=== PATIENT | male | born 1975 | race African-American/Black ===

== ENCOUNTER 2019-05-27 09:43 | Emergency (ER) | payer BC ==
[2019-05-27 09:52] VITALS: BP 141/85
--- NOTE | 2019-05-27 10:04 | UC ---
Cardiac HPI - HPI Summary HPI Summary: Mr. Shane is had several episodes of brief pressure-like discomfort in his anterior chest this morning. There were no exacerbating or relieving factors that he can identify. He did have some shortness of breath with it. He has never had symptoms like this before. - History of Current Complaint Chief Complaint: UCChestPain Stated Complaint: CHEST DISCOMFORT Time Seen by Provider: 05/27/19 09:47 Hx Obtained From: Patient Onset/Duration: Sudden Onset, Lasting Minutes Initial Severity: Mild Current Severity: Mild Pain Intensity: 3 Chest Pain Location: Mid Sternal Character: Pressure/Squeezing Aggravating Factor(s): Nothing Alleviating Factor(s): Nothing Associated Signs & Symptoms: Positive: SOB - Risk Factors Pulmonary Embolism Risk Factors: Negative Cardiac Risk Factors: Hypertension, Diabetes, Elevated Lipids, Family History - Allergy/Home Medications Allergies/Adverse Reactions: Allergies Allergy/AdvReac Type Severity Reaction Status Date / Time No Known Allergies Allergy Verified 05/27/19 09:47 Home Medications: Home Medications Atorvastatin* [Lipitor 40 MG*] 1 tab PO DAILY 05/27/19 [History Confirmed ] PMH/Surg Hx/FS Hx/Imm Hx Endocrine History: Diabetes, Dyslipidemia Cardiovascular History: Hypertension - Surgical History Surgical History: None - Family History Known Family History: Positive: Cardiac Disease, Hypertension, Diabetes - Social History Alcohol Use: Occasionally Substance Use Type: None Smoking Status (MU): Never Smoked Tobacco Review of Systems All Other Systems Reviewed And Are Negative: Yes Constitutional: Positive: Negative Skin: Positive: Negative Respiratory: Positive: Shortness Of Breath Cardiovascular: Positive: Chest Pain Gastrointestinal: Positive: Negative Physical Exam - Summary Physical Exam Summary: Is nontoxic in appearance with stable vital signs. He is class II obese Triage Information Reviewed: Yes Appearance: Well-Appearing, No Pain Distress, Obese Vital Signs: Initial Vital Signs Temp 98.3 F 05/27/19 09:44 Pulse 73 05/27/19 09:44 Resp 22 05/27/19 09:44 BP 141/85 05/27/19 09:44 Pulse Ox 98 05/27/19 09:44 Vital Signs Reviewed: Yes ENT Exam: Normal Neck: Positive: Supple Respiratory Exam: Normal Cardiovascular Exam: Normal Abdominal Exam: Normal Skin Exam: Normal Diagnostics - EKG Cardiac Rate: NL Cardiac Rhythm: Sinus: Normal Ectopy: None ST Segment: Normal EKG Comparison: No Significant Change - From 02/05/09 - Assessment/Plan Course Of Treatment: Situations beyond the capabilities of the urgent care center. He needs evaluation in the emergency department for more thorough workup. I recommended EMS transport but he is completely asymptomatic at this point and agrees to drive over. I warned him that if his chest pain returns or is any other symptoms she should mold puller and call 911. - Clinical Impression Provider Diagnosis: Chest pain Discharge ED - Sign-Out/Discharge Documenting (check all that apply): Patient Departure All imaging exams completed and their final reports reviewed: No Studies - Discharge Plan Condition: Stable Disposition: HOME-RECOMMEND TO ED Referrals: Zaira Chapman MD [Primary Care Provider] - - Billing Disposition and Condition Condition: STABLE Disposition: Home-Recommend to ED
== END 2019-05-27 10:15 | disposition home health service (06) ==
LOC: UCEAST 09:43
DX: R07.89 Other chest pain (principal); E11.9 Type 2 diabetes mellitus without complications; I10 Essential (primary) hypertension; E78.5 Hyperlipidemia, unspecified; R06.02 Shortness of breath; Z79.899 Other long term (current) drug therapy
CPT/HCPCS: 93005; 99212; G0463

== ENCOUNTER 2019-05-27 10:37 | Emergency (ER) | payer BC ==
[2019-05-27] MEDS ORDERED: Ketorolac INJ* 30 MG/ML 1 ML VIAL IV PUSH ONE (11:00)
[2019-05-27 11:05] LABS: ABS Basophils 0.1 10^3/ul (0-0.2); ABS Eosinophils 0.1 10^3/ul (0-0.6); ABS Lymphocytes 2.2 10^3/ul (1.0-4.8); ABS Monocytes 0.7 10^3/ul (0-0.8); ABS Neutrophils 7.6 10^3/ul (1.5-7.7); Eosinophil % 1.1 %; Hematocrit 47 % (42-52); Hemoglobin 15.6 g/dL (14.0-18.0); Lymphocyte % 20.6 %; Mean Corpuscular HGB Conc 33 g/dL (31-36); Mean Corpuscular Hemoglobin 27 pg (27-31); Mean Corpuscular Volume 81 fL (80-94); Mean Platelet Volume 8.3 fL (7.4-10.4); Nucleated Red Blood Cells % 0.1; Platelet Count 207 10^3/uL (150-450); Red Blood Count 5.74 10^6 /uL (4.18-5.48); Red Cell Distribution Width 14 % (10-15); White Blood Count 10.7 10^3/uL (3.5-10.8)
[2019-05-27 11:09] LABS: INR 0.99 (0.82-1.09)
--- NOTE | 2019-05-27 11:09 | ED ---
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 He states he didnt feel right and at work he started feeling short of breath. He notes 3/10 sharp pains on the L anterior chest, and thinks he also may have pulled a muscle in his neck. He denies nausea, vomiting, dizziness, lightheadedness, and pain radiating or shooting anywhere. PMHx includes HTN, HLD, Type II DM. FHx: HTN, HLD, DM, and father had an NV in his 40s. Pt had stress test in 2008 without significant findings. - History of Current Complaint Chief Complaint: EDChestPainROMI Time Seen by Provider: 05/27/19 10:42 Hx Obtained From: Patient Onset/Duration: Started Hours Ago, Still Present Timing: Constant, Lasting Hours Initial Severity: Mild Current Severity: Mild Pain Intensity: 3 Pain Scale Used: 0-10 Numeric Chest Pain Location: Left Anterior Chest Pain Radiates: No Character: Sharp/Stabbing Aggravating Factor(s): Movement - moving his head Alleviating Factor(s): Nothing Associated Signs and Symptoms: Positive: Chest Pain, Shortness of Breath. Negative: Dizziness, Lightheadedness, Nausea, Vomiting - Allergy/Home Medications Allergies/Adverse Reactions: Allergies Allergy/AdvReac Type Severity Reaction Status Date / Time No Known Allergies Allergy Verified 05/27/19 09:47 Home Medications: Home Medications Dapagliflozin 10 mg Tab (Nf) [Farxiga] 10 mg PO DAILY 05/27/19 [History Confirmed 05/27/19] Losartan TAB* [Cozaar TAB*] 100 mg PO DAILY 05/27/19 [History Confirmed 05/27/19 ] Metformin ER (NF) 2,000 mg PO DAILY 05/27/19 [History Confirmed 05/27/19] Metoprolol Succinate XL TAB* [Toprol XL TAB*] 50 mg PO DAILY 05/27/19 [History Confirmed 05/27/19] amLODIPine TAB* [Norvasc 5 mg TAB*] 10 mg PO DAILY 05/27/19 [History Confirmed 05/27/19] PMH/Surg Hx/FS Hx/Imm Hx Previously Healthy: Yes Endocrine/Hematology History: Reports: Hx Diabetes Cardiovascular History: Reports: Hx Hypercholesterolemia, Hx Hypertension Respiratory History: Reports: Hx Sleep Apnea - Diagnosed severe CHRIS in 2009 Musculoskeletal History: Reports: Hx Gout Infectious Disease History: No Infectious Disease History: Denies: Traveled Outside the [place] in Last 30 Days - Family History Known Family History: Positive: Cardiac Disease - paternal, in 40s, Hypertension , Diabetes - Social History Alcohol Use: Occasionally Hx Substance Use: No Substance Use Type: Reports: None Hx Tobacco Use: No Smoking Status (MU): Never Smoked Tobacco Review of Systems Positive: Chest Pain Positive: Shortness Of Breath Negative: Vomiting, Nausea Neurological: Negative - dizziness, lightheadedness All Other Systems Reviewed And Are Negative: Yes Physical Exam - Summary Physical Exam Summary: VITAL SIGNS: Reviewed. GENERAL: Patient is a well-developed and nourished male who is lying comfortable in the stretcher. Patient is not in any acute respiratory distress. HEAD AND FACE: No signs of trauma. No ecchymosis, hematomas or skull depressions. No sinus tenderness.. EYES: PERRLA, EOMI x 2, No injected conjunctiva, no nystagmus. EARS: Hearing grossly intact. Ear canals and tympanic membranes are within normal limits. MOUTH: Oropharynx within normal limits. NECK: Supple, trachea is midline, no adenopathy, no JVD, no carotid bruit, no c- spine tenderness, neck with full ROM. CHEST: Symmetric, no tenderness at palpation. LUNGS: Clear to auscultation bilaterally. No wheezing or crackles. CVS: Regular rate and rhythm, S1 and S2 present, no murmurs or gallops appreciated. ABDOMEN: Soft, non-tender. No signs of distention. No rebound, no guarding, and no masses palpated. Bowel sounds are normal. EXTREMITIES: FROM in all major joints, no edema, no cyanosis or clubbing. NEURO: Alert and oriented x 3. No acute neurological deficits. Speech is normal and follows commands. SKIN: Dry and warm. Triage Information Reviewed: Yes Vital Signs On Initial Exam: Initial Vitals Temp Pulse Resp BP Pulse Ox 98.7 F 68 19 149/82 94 05/27/19 10:40 05/27/19 10:40 05/27/19 10:40 05/27/19 10:40 05/27/19 10:40 Vital Signs Reviewed: Yes Procedures - Sedation Patient Received Moderate/Deep Sedation with Procedure: No Diagnostics - Vital Signs Vital Signs Temp Pulse Resp BP Pulse Ox 05/27/19 10:40 98.7 F 68 19 149/82 94 - Laboratory Result Diagrams: 05/27/19 10:47 05/27/19 10:47 Lab Statement: Any lab studies that have been ordered have been reviewed, and results considered in the medical decision making process. - EKG 1040 Cardiac Rate: NL - 63bpm EKG Rhythm: Sinus Rhythm ST Segment: Normal Ectopy: None Summary of EKG Findings: EKG at 1040 shows NSR at 63bpm with no ST elevations. ED physician has reviewed and interpreted this EKG. Re-Evaluation - Re-Evaluation 1st re-eval Re-Evaluation Time: 12:44 Change: Improved Comment: Pt states symptoms resolved with nitroglycerin. 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 He states he didnt feel right and at work he started feeling short of breath. He notes 3/10 sharp pains on the L anterior chest, and thinks he may have pulled a muscle in his neck. He denies nausea, vomiting, dizziness, lightheadedness, and pain radiating or shooting anywhere. PMHx includes HTN, HLD, Type II DM. FHx: HTN, HLD, DM, and father had an NV in his 40s. Pt had stress test in 2008 without significant findings. Patient has comorbidities for ACS. Thus he was given ASA, and nitroglycerin. HR in the 60s and I held the BB. Patients chest pain and shortness of breath resolved after nitroglycerin. The patient has multiple comorbidities and a strong family history for acute coronary syndrome. Therefore, I discuss my physical exam and test results with Dr. Muñoz from the hospitalist services and he agrees to admit the patient to his services. The patient is hemodynamically stable alert and oriented x 3. - Chest Pain Differential Diagnosis/HQI/PQRI: Acute NV, ACS, Angina, CHF, Chest Wall, GI Disease, Lower Respiratory Infection, Pulmonary Edema - Diagnoses Provider Diagnoses: Chest pain - Provider Notifications Discussed Care Of Patient With: Frances Muñoz Time Discussed With Above Provider: 12:53 Instructed by Provider To: Admit As Inpatient Discharge ED - Sign-Out/Discharge Documenting (check all that apply): Patient Departure - Discharge Plan Condition: Stable Disposition: HOME Patient Education Materials: Chest Pain (ED) Referrals: Zaira Chapman MD [Primary Care Provider] - Jono Hernández MD [Medical Doctor] - Additional Instructions: Please follow up with cardiology outpatient to schedule a stress test. Return to the emergency department with any new or worsening symptoms. - Billing Disposition and Condition Condition: STABLE Disposition: Home - Attestation Statements Document Initiated by Scribe: Yes Documenting Scribe: Rachele Leon Provider For Whom Tuan is Documenting (Include Credential): Jonn Garcia MD. Scribe Attestation: Rachele Quiroz scribed for Jonn Garcia MD. on 05/27/19 at 2033. Scribe Documentation Reviewed: Yes Provider Attestation: The documentation as recorded by the Rachele lindquist accurately reflects the service I personally performed and the decisions made by Jonn cheung MD. Status of Scribe Document: Viewed Consult Consult: 0057 - Hospitalist will be d/c'ing the pt for an outpatient stress test. Pt agreeable.
[2019-05-27] MEDS ORDERED: Aspirin 81 mg CHEW TAB* 81 MG TAB.CHEW PO ONE (11:16)
[2019-05-27] MEDS ORDERED: Nitroglycerin TAB 0.4 MG* 0.4 MG TAB SL ONE (11:16)
[2019-05-27 11:17] LABS: Albumin 4.4 g/dL (3.2-5.2); Albumin/Globulin Ratio 1.5 (1-3); BUN/Creatinine Ratio 15.9 (8-20); Calcium 9.8 mg/dL (8.6-10.3); EGFR African American 113.8 (>60); EGFR Non-African American 94.1 (>60); Globulin 2.9 g/dL (2-4); Potassium 3.8 mmol/L (3.5-5.0); Total Bilirubin 0.5 mg/dL (0.2-1.0); Total Protein 7.3 g/dL (6.4-8.9)
[2019-05-27] MEDS ORDERED: Acetaminophen TAB* 325 MG PO PRN (14:30)
[2019-05-27] MEDS ORDERED: Dextrose 50% VIAL 50 ml IV PUSH PRN (14:34)
[2019-05-27 15:47] VITALS: BP 124/97
--- NOTE | 2019-05-27 16:12 | CONS ---
CC: Zaira Chapman MD * CONSULTATION REPORT: DATE OF CONSULT: 05/27/19 - EMERGENCY DEPT PRIMARY CARE PROVIDER: Zaira Chapman MD. ATTENDING PHYSICIAN: Frances Muñoz DO (dictated by SHE Claudio). CHIEF COMPLAINT: Chest pain. HISTORY OF PRESENT ILLNESS: Mr. Shane is a 44-year-old male with a past medical history of hypertension, hyperlipidemia, diabetes mellitus, who presented to the ER today with complaints of chest heaviness. He reports chest heaviness across the anterior chest. He does have associated shortness of breath described as inability to have relief provided with deep breathing. He describes no radiation of the pain. He reports the pain as 2/10. Upon arrival to the ER, he received 1 nitro which he reports improved his shortness of breath. The patient states that he woke with a sharp pain in "multiple places" this morning, describing sharp pain in bilateral hips and different areas of the ribs. He notes that the pain was worse with leaning forward x1 episode, which prompted him to come to the ER. The patient does report a new exercise routine starting in May. He has had no recent injury or travel. He denies cough, fever, chills. He denies dyspnea or chest pain on exertion. He has no other complaints today. The patient's HEART score is 2. In the ER, the patient received a full workup including laboratory data, which was grossly abnormal except for a glucose of 149, troponins are 0.00 x2. Two EKGs were obtained, one revealing rate of 69, one with a rate of 63, neither had ST depressions or elevations. Chest x-ray was ordered and is pending. In ER, the patient received aspirin 81 mg, ketorolac 30, nitro 0.4 sublingual. The hospitalist team was asked to evaluate the patient for admission. PAST MEDICAL HISTORY: 1. Diabetes mellitus type 2, noninsulin dependent. 2. Hypertension. 3. Hyperlipidemia. PAST SURGICAL HISTORY: None. HOME MEDICATIONS: 1. Amlodipine 10 mg p.o. daily. 2. Atorvastatin 40 mg p.o. daily. 3. Dapagliflozin 10 mg p.o. daily. 4. Glipizide 10 mg p.o. daily. 5. Losartan 100 mg p.o. daily. 6. Metformin ER 2000 mg p.o. daily. 7. Metoprolol succinate 50 mg p.o. daily. ALLERGIES: No known drug allergies. FAMILY HISTORY: Father had an NH at the age of 42, also had quadruple bypass. Mother had hypertension, hyperlipidemia, and is due to CVA. The patient believes that this was due to alcohol use. Maternal grandmother had CVA. Paternal grandmother had diabetes mellitus. SOCIAL HISTORY: The patient denies current or former use of tobacco. He drinks less than weekly. He works in a kitchen at [employer]. He is with 2 children and he lives with his and 2 children. In the event that he is unable to make his own medical decisions, he has appointed his Nohemy Shane to be his surrogate decision maker. REVIEW OF SYSTEMS: A 14-point review of systems has been performed and all the pertinent positives and negatives are in the HPI. All other systems are negative. PHYSICAL EXAM: Mr. Shane is a well-developed, well-nourished, obese, middle age white male who is sitting up in bed. He appears to be in no acute distress. He is pleasant, cooperative, and appropriate. He is breathing comfortably on room air. HEENT: PERRL. EOMI. Visual mcconnell grossly intact. Sclerae is nonicteric without injection. Hearing is grossly intact. Oral mucous membranes are moist. There are no lesions. The pharynx is clear. The tongue is at midline. Palate elevates symmetrically. Cardiovascular: Regular rate and rhythm with S1, S2 present without murmurs, rubs, clicks, or gallops. There is no JVD or peripheral edema. The chest wall is nontender to palpation. Pulmonary: Symmetrical chest expansion without use of accessory muscles. Clear to auscultation bilaterally without rhonchi, wheeze, or rales. Abdomen: Obese. Bowel sounds in all quadrants, soft, nontender to palpation. Musculoskeletal: Full range of motion without pain or deformity. The patient has tenderness to palpation of bilateral hips. Neuro: The patient is awake. He is alert and oriented x3. Cranial nerves II through XII are grossly intact. He is able to move all of his extremities with motor strength 5/5 bilaterally in upper and lower extremities. DIAGNOSTIC STUDIES/LAB DATA: CBC within normal limits. CMP within normal limits. Troponin 0.00, 0.00. 1. EKG, rate of [address] depression or elevation. 2. EKG, rate of [address] changes. 3. Chest x-ray is pending. ASSESSMENT AND PLAN: Mr. Shane is a 44-year-old male with a past medical history of diabetes, hypertension, hyperlipidemia, who presented to the ER today with complaints of chest pain. Recommendations are as follows: 1. Chest pain. The patient's chest pain appears to be musculoskeletal in nature as he has recently started a new exercise routine and has started lifting weights again. He complains of chest wall soreness as well as bilateral hip pain again with new onset exercise. His EKG is unremarkable. He has had 2 troponins that are 0.00. A hemoglobin A1c has been added on to today' s lab data. At this point in time, the patient's HEART score is 2, placing him in the low risk category with a risk of major adverse cardiac event of 0.9 to 1.7. This score along with the patient's presentation I do not believe warrants an admission. I recommend stress testing in the outpatient setting which should be done this week. A stress test has been ordered and the patient will be called with a date and time of the stress test. The patient is recommended to avoid strenuous activity until he performs his stress test. He was also asked to come back to the ER if chest pain returns, at which point in time he will be admitted for further workup. The importance of returning if chest pain returns was stressed. 2. Hypertension. Continue home medications losartan, metoprolol, amlodipine. 3. Hyperlipidemia. Continue atorvastatin 40. 4. Diabetes mellitus. Continue home medications dapagliflozin, glipizide, and metformin. 5. Code status: Full code. TIME SPENT: Approximately 60 minutes were spent on this consultation, greater than half that time was spent [id number] with the patient and his obtaining history, performing physical, and reviewing the plan of care. This case has been discussed with my attending Dr. Muñoz, who is in agreement with the plan of care. SHE LU [id number]/[facility] #: [id number] DANIEL
[2019-05-27] MEDS ORDERED: Insulin LISPRO* 1 UNITS UNIT SUBCUT SCH (16:30)
[2019-05-27] MEDS ORDERED: Heparin VIAL(*) 5000 UNITS/ML VIAL (FIVE THOUSAND) SUBCUT SCH (22:00)
[2019-05-28] MEDS ORDERED: Atorvastatin* 40 MG TAB PO SCH (09:00)
[2019-05-28] MEDS ORDERED: glipiZIDE TAB.XL* 5 MG PO SCH (09:00)
[2019-05-28] MEDS ORDERED: DAPAGLIFLOZIN 10 MG TAB (NF) PO SCH (09:00)
[2019-05-28] MEDS ORDERED: Metformin ER (NF) 500 MG TAB PO SCH (09:00)
[2019-05-28] MEDS ORDERED: Losartan TAB* 25 MG PO SCH (09:00)
[2019-05-28] MEDS ORDERED: Metoprolol Succinate XL TAB* 50 MG PO SCH (09:00)
[2019-05-28] MEDS ORDERED: amLODIPine TAB* 5 MG PO SCH (09:00)
== END 2019-05-27 15:47 | disposition home or self-care (01) ==
LOC: ED 10:37
DX: R07.9 Chest pain, unspecified (principal); R06.02 Shortness of breath; I10 Essential (primary) hypertension; E11.9 Type 2 diabetes mellitus without complications; E78.5 Hyperlipidemia, unspecified
CPT/HCPCS: 36415; 71046; 80053; 83036; 84484; 85025; 85610; 93005; 99284; A9270-GY